=== PATIENT | male | born 1990 | race Caucasian/White ===

== ENCOUNTER 2019-06-13 08:10 | Outpatient (CLI) | payer OTHER ==
--- NOTE | 2019-06-13 10:43 | ULT ---
ULTRASOUND ABDOMEN: HISTORY: Fatty liver. FINDINGS: The liver demonstrates homogeneous echotexture without focal mass or intrahepatic biliary ductal dila tation. No gallstones, gallbladder wall thickening, or pericholecystic fluid is seen. The common du ct measures 2 mm in diameter. The pancreas is not well visualized due to overlying bowel gas. The v isualized portions of the aorta and IVC are unremarkable. No hydronephrosis is seen on either side. The spleen measures 10.8 cm in length, the right kidney 8.5 cm in length, and the left kidney 10.4 cm in length. No free fluid is seen in the abdomen. IMPRESSION: 1. The right kidney is smaller than the left. 2. No evidence of fatty liver or cholelithiasis. POS: OFF
== END 2019-06-13 08:11 | disposition home or self-care (01) ==
LOC: SCSULT 08:10
PROVIDERS: ATTEND Family Medicine
DX: K76.0 Fatty (change of) liver, not elsewhere classified (principal); N27.0 Small kidney, unilateral
CPT/HCPCS: 76700